=== PATIENT | female | born 1955 | race Caucasian/White ===

== ENCOUNTER 2019-01-24 23:25 | Emergency (ER) | payer MEDICARE ==
[~2019-01-24] VITALS: Ht 157.5 cm; Wt 63.5 kg
[2019-01-24 23:30] VITALS: BP_SYST 115
[2019-01-25] MEDS ORDERED: HYDROcodone/ACETAMIN 5-325 MG TAB (NORCO/ VICODIN) PO ONE (00:30)
[2019-01-25] MEDS ORDERED: ONDANSETRON 4 MG ODT TAB PO ONE (00:30)
[2019-01-25 01:43] VITALS: BP_SYST 122
== END 2019-01-25 01:43 | disposition home or self-care (01) ==
LOC: SED 23:25
DX: S00.83XA Contusion of other part of head, initial encounter (principal); Z88.8 Allergy status to other drugs, medicaments and biological substances; W22.8XXA Striking against or struck by other objects, initial encounter; Y93.75 Activity, martial arts; Y92.89 Other specified places as the place of occurrence of the external cause; Y99.8 Other external cause status
CPT/HCPCS: 70450; 99284; Q0162

== ENCOUNTER 2019-12-15 11:39 | Emergency (ER) | payer MEDICARE ==
[~2019-12-15] VITALS: Ht 160 cm; Wt 63.5 kg
[2019-12-15 11:47] VITALS: BP_SYST 156
[2019-12-15] MEDS ORDERED: fentaNYL CITRATE/PF 100 MCG/2 ML AMP IM ONE (13:00)
[2019-12-15] MEDS ORDERED: ONDANSETRON HCL 4 MG/5 ML UDC PO ONE (13:00)
[2019-12-15] MEDS ORDERED: KETOROLAC TROMETHAMINE 60 MG/2 ML VIAL IM ONE (13:00)
[2019-12-15 14:37] VITALS: BP_SYST 109
== END 2019-12-15 14:50 | disposition home or self-care (01) ==
LOC: SED 11:39
DX: S82.002A Unspecified fracture of left patella, initial encounter for closed fracture (principal); S80.212A Abrasion, left knee, initial encounter; Z88.5 Allergy status to narcotic agent; W01.0XXA Fall on same level from slipping, tripping and stumbling without subsequent striking against object, initial encounter; Y93.89 Activity, other specified; Y92.89 Other specified places as the place of occurrence of the external cause; Y99.8 Other external cause status
CPT/HCPCS: 29505; 73564; 96372; 99284; J1885; J3010; Q0162